=== PATIENT | male | born 1960 | race Two or more races ===

== ENCOUNTER 2020-04-30 09:21 | Outpatient (REF) | payer MEDICARE, SELFPAY | END 2020-04-30 09:22 | disposition home or self-care (01) | LOC: HO.LAB 09:21 | PROVIDERS: PCP Family Medicine; Visit Provider Internal Medicine | DX: Z20.828 Contact with and (suspected) exposure to other viral communicable diseases (principal) | CPT/HCPCS: C9803; U0003 ==

== ENCOUNTER 2020-06-29 12:49 | Outpatient (REF) | payer MEDICARE, SELFPAY | END 2020-06-29 12:50 | disposition home or self-care (01) | LOC: HO.LAB 12:49 | PROVIDERS: Visit Provider Internal Medicine | DX: Z20.822 Contact with and (suspected) exposure to COVID-19 (principal) | CPT/HCPCS: 36415; C9803; U0003; U0005 ==

== ENCOUNTER 2021-02-23 11:34 | Emergency (ER) | payer MEDICARE, SELFPAY ==
[2021-02-23 12:37] VITALS: BP 172/93; PULSE 104; RESP 18; TEMP 37; O2SAT 99; BMI 29.8
--- NOTE | 2021-02-23 13:49 | ED.BACK ---
HPI - Back Pain/Injury General Chief Complaint: Back Pain/Injury Stated Complaint: back/leg pain Time Seen by Provider: 02/23/21 13:04 Source: patient Mode of arrival: ambulatory Limitations: no limitations History of Present Illness MD elicited complaint: back pain Onset (ago): week(s) (One week worse today) Timing: constant and progressively worsening Severity: moderate Quality: sharp and aching Location: sacrum Radiation: left upper leg and left leg below the knee Exacerbating factors: movement, supine positioning, sitting upright and walking Relieving factors: other (Laying on the right side) Context: unknown Associated symptoms: denies other symptoms Work related injury: No Related Data Previous Rx's Medication Instructions Recorded acetaminophen 500 mg tablet 1,000 mg PO QID PRN #14 tab 02/23/21 (Tylenol Extra Strength) cyclobenzaprine 10 mg tablet 10 mg PO Q8H PRN #14 tab 02/23/21 ibuprofen 800 mg tablet 800 mg PO Q8H PRN #14 tab 02/23/21 lidocaine HCl 4 % topical cream 1 appl TOPICAL BID PRN #120 g 02/23/21 (Aspercreme (lidocaine HCl)) oxycodone 5 mg tablet 5 mg PO Q6H PRN #14 tab 02/23/21 prednisone 20 mg tablet 40 mg PO DAILY 5 Days #10 tab 02/23/21 Allergies Allergy/AdvReac Type Severity Reaction Status Date / Time trazodone [TRAZODONE] Allergy Unknown UNKNOWN Verified 02/23/21 12:37 Review of Systems Review of Systems: Constitutional : No trauma, No Weight loss, No Fever, No Chills, ENT/Mouth : No Hearing loss, No Ear Pain, No Nasal Congestion, No Sinus Pain, No Hoarseness, No sore throat, No Rhinorrhea, No Swallowing Difficulty Cardiovascular : No Chest Pain, No SOB Respiratory : No Cough, No Dyspnea Gastrointestinal : No Nausea, No Vomiting, No Diarrhea, No abdominal Pain, No Hematochezia, No Melena Genitourinary : No Dysuria, No Urinary Frequency, No Hematuria, No Urinary or Bowel Incontinence/retention Musculoskeletal : + Back pain, No neck pain, No joint stiffness, No joint swelling Skin : No Skin Lesions, No rash or signs of infection Neuro : No Weakness, No radiation, No Numbness, No Paresthesias, No headache, no loss of bowel or bladder incontinence, no saddle anesthesia, Focal weakness, No radiation Denies history of IV drug usage. Yes all other systems are reviewed and are negative [facility] Past Medical History Attestation statement: The following information was validated with the patient. Social History Social History Advance Directives: No Physical Exam Vital Signs: Vital Signs: Last Vital Signs Temp 98.6 F 02/23/21 12:37 Pulse 104 H 02/23/21 12:37 Resp 18 02/23/21 12:37 BP 172/93 H 02/23/21 12:37 Pulse Ox 99 02/23/21 12:37 Body Mass Index 29.8 vital signs have been reviewed as normal and appeared to be correct. Blood pressure normal. Heart rate normal. Respiration rate normal. Temperature normal. Oxygen saturation normal. Appearance: Alert. Oriented X3. No acute distress. Head: Normal external exam. Normocephalic. Atraumatic. No Thompson signs noted. No raccoon eyes noted Eyes: PERRLA. EOMI. Conjunctiva and sclera normal. Eyelids normal. ENT: EAC normal. TM's Normal. Pharynx normal. Uvula midline. Moist mucous membranes. No trismus noted. No drooling noted. No muffled voice noted. Neck: Normal inspection. Neck supple. FROM. No adenopathy. Thyroid Normal. No meningeal signs. No neck mass noted. CVS: Normal heart rate and rhythm. Heart sound normal. No murmurs noted. Pulses normal throughout. Respiratory: No respiratory distress. Painless inspiration. Breath sounds normal. No wheezes/rales/rhonchi noted. Chest nontender. No accessory muscle usage noted or decreased air movement noted. Abdomen: Soft and nontender. Bowel sounds normal in all 4 quadrants. No distention noted. No organomegaly noted. No visible injury noted. Back: No CVA tenderness. Full range of motion noted. No obvious deformities, or edema. Mild para-spinal muscular tenderness from lumbar region to coccyx. Full ROM in back and lower extremities. 5/5 strength hip extension/flexion, abduction, adduction. Mild Lumbar pain with hip flexion against resistance. Straight leg raise test negative on right; Straight leg raise test negative on left; Reflexes normal ankle and knee bilaterally; EHL motor strength normal bilaterally. No rashes/lesion/induration/fluctuance or signs infection noted. Skin: Skin warm and dry. Normal skin color. Normal skin turgor. No rashes/lesions/lacerations noted. Extremities: No lower extremity edema. Extremities exhibit normal range of motion. Extremities nontender. Neuro: Oriented X 3. No motor deficit. No sensory deficit. Reflexes normal. Patient has a normal steady gait. Course Course Course Narrative: Pt c likely muscular pain, but could be herniated disc. Neuro exam shows no deficits. Not c/w AAA/epidural abscess/dissection.No high risk Hx (Incont, fever, immunosupp, recent surgery/LP, coag, signif trauma, wt loss, puls mass, hx/o Ca, TB, or IVDU) to warrant MRI/CT today. Not c/w Pyelo/UTI/kidney stone/spinal fx. Not cauda equina syndrome. Imaging not currently indicated. DC c meds and f/u. MDM - Back Pain/Injury Medical Records Attestation: I reviewed the patient's medical records. Discharge Plan Discharge Clinical Impression: Lumbar radiculopathy Patient Disposition: Home, Self-Care Instructions: Lumbar Radiculopathy (ED), Lower Back Exercises (ED) Prescriptions: New cyclobenzaprine 10 mg tablet 10 mg PO Q8H PRN (Reason: Muscle spasm) Qty: 14 RF: 0 ibuprofen 800 mg tablet 800 mg PO Q8H PRN (Reason: pain) Qty: 14 RF: 0 prednisone 20 mg tablet 40 mg PO DAILY 5 Days Qty: 10 RF: 0 acetaminophen [Tylenol Extra Strength] 500 mg tablet 1,000 mg PO QID PRN (Reason: fever or pain) Qty: 14 RF: 0 oxycodone 5 mg tablet 5 mg PO Q6H PRN (Reason: pain) Qty: 14 RF: 0 lidocaine HCl [Aspercreme (lidocaine HCl)] 4 % cream 1 appl topical BID PRN (Reason: pain) Qty: 120 RF: 0 Referrals: Amira Garber MD [Primary Care Provider] - 2 days Stand Alone Forms: Work/School Release Print Language: Georgian
[2021-02-23] MEDS: Ibuprofen 800 MG TABLET PO (14:05)
[2021-02-23] MEDS: oxyCODONE HCl Immed Release 5 MG TABLET PO (14:05)
[2021-02-23] MEDS: predniSONE 20 MG TABLET 40 MG PO (14:05)
== END 2021-02-23 14:10 | disposition home or self-care (01) ==
PROVIDERS: Emergency Provider Emergency Medicine; PCP Family Medicine
DX: M54.16 Radiculopathy, lumbar region (principal); M54.50 Low back pain, unspecified; M79.605 Pain in left leg; M79.604 Pain in right leg; Z79.899 Other long term (current) drug therapy
CPT/HCPCS: 99283

== ENCOUNTER 2021-05-27 19:45 | Emergency (ER) | payer MEDICARE, SELFPAY ==
[2021-05-27 20:15] VITALS: BP 179/91; PULSE 91; RESP 16; TEMP 36.6; O2SAT 96
== END 2021-05-28 04:02 | disposition left against medical advice (07) ==
PROVIDERS: Emergency Provider Emergency Medicine
DX: S61.411A Laceration without foreign body of right hand, initial encounter (principal); W27.8XXA Contact with other nonpowered hand tool, initial encounter; Y93.89 Activity, other specified; Y92.9 Unspecified place or not applicable; Y99.9 Unspecified external cause status
CPT/HCPCS: 99281

== ENCOUNTER 2023-01-10 16:42 | Emergency (ER) | payer OTHER, SELFPAY ==
--- NOTE | ~2023-01-10 | XR_ITS ---
EXAMINATION: XR KNEE, LEFT CLINICAL INFORMATION: Pain. COMPARISON: None available. TECHNIQUE: Four views of the left knee. FINDINGS: Bone mineralization is normal. There is no fracture. There is a small to moderate joint effusion. Alignment is anatomic. Joint spaces are maintained. No abnormal soft tissue calcification. XR/XR knee LT 3V IMPRESSION: No acute osseous abnormality. Small to moderate joint effusion.
--- NOTE | ~2023-01-10 | US_ITS ---
EXAMINATION: US VENOUS ULTRASOUND WITH DOPPLER LOWER EXTREMITY, LEFT CLINICAL INFORMATION: Left lower extremity pain and edema. COMPARISON: None available. TECHNIQUE: Ultrasound of the deep veins is performed from the hip to the calf with compression sonography and color and pulse Doppler assessment. Spectral analysis with color-flow imaging is performed. FINDINGS: There is normal venous compression and respiratory variation and augmented flow. The visualized common femoral vein, superficial femoral vein, profunda femoral vein, popliteal vein, and the trifurcation region shows no evidence of deep venous thrombosis. Complex avascular collections seen in the popliteal fossa with heterogeneous internal debris and peripheral hyperemia measuring 3.2 x 1 x 2.3 cm and 5.9 x 1.1 x 2.5 cm. US/US venous duplex LE LT IMPRESSION: No DVT demonstrated in the left lower extremity. If the patient's symptoms persist, followup ultrasound in 5 days 7 days might be of value to exclude proximal propagation from a non-visualized calf vein. Complex avascular fluid collections in the left popliteal fossa possibly representing Santiago's cysts with superimposed infection/inflammatory changes. Correlate with physical examination. Recommend a short-term follow-up study to ensure appropriate resolution.
--- NOTE | 2023-01-10 16:54 | ED.LOWEXIN ---
HPI - Extremity Injury (Lower) General Chief Complaint: Extremity Injury, Lower Stated Complaint: L knee pain with swelling Time Seen by Provider: 01/10/23 17:16 Source: patient Mode of arrival: ambulatory Limitations: no limitations History of Present Illness HPI Narrative: 62-year-old male came in for evaluation of left knee pain started few weeks ago and progressively getting worse, pain has been constant for the last 3 days. No fever, no chills, no trauma, no recent fall, no recent travel or prolonged immobilization, no history of DVT. Related Data Previous Rx's Medication Instructions Recorded acetaminophen 500 mg tablet 1,000 mg PO QID PRN fever or pain 02/23/21 (Tylenol Extra Strength) #14 tabs cyclobenzaprine 10 mg tablet 10 mg PO Q8H PRN Muscle spasm #14 02/23/21 tabs ibuprofen 800 mg tablet 800 mg PO Q8H PRN pain #14 tabs 02/23/21 lidocaine HCl 4 % topical cream 1 appl topical BID PRN pain #120 02/23/21 (Aspercreme (lidocaine HCl)) grams oxycodone 5 mg tablet 5 mg PO Q6H PRN pain #14 tabs 02/23/21 prednisone 20 mg tablet 40 mg PO DAILY rash 5 days #10 tabs 02/23/21 ibuprofen 600 mg tablet 600 mg PO Q8H PRN pain #20 tabs 01/10/23 oxycodone 5 mg tablet 5 mg PO TID PRN pain #10 tabs 01/10/23 Allergies Allergy/AdvReac Type Severity Reaction Status Date / Time trazodone [TRAZODONE] Allergy Unknown UNKNOWN Verified 01/10/23 16:58 Review of Systems Review of Systems: All other systems are reviewed and are negative Constitutional: Reports as per HPI and Reports no additional constitutional complaints Eyes: Reports as per HPI and Reports no additional eye complaints Reports system reviewed and no additional complaints, except as documented Cardiovascular: Reports as per HPI and Reports no additional cardiovascular complaints Respiratory: Reports as per HPI and Reports no additional respiratory complaints Gastrointestinal: Reports as per HPI and Reports no additional gastrointestinal complaints Genitourinary: Reports no additional female genitourinary complaints Musculoskeletal: Reports no additional musculoskeletal complaints Skin/Breast: Reports system reviewed and no additional complaints, except as docu Psychiatric: Reports no additional psychiatric complaints Endocrine: Reports no additional endocrine complaints Hematologic/Lymphatic: Reports no additional hematologic/lymphatic complaints Allergic/Immunologic: Reports no additional allergic/immunologic complaints Reports system reviewed and no additional complaints, except as documented and Reports Abnormal speech present [facility] Social History Social History Advance Directives: No Advance Directives Information Provided: No Physical Exam Vital Signs: Vital Signs: Last Vital Signs Temp 98.9 F 01/10/23 16:56 Pulse 98 01/10/23 16:56 Resp 18 01/10/23 16:56 BP 174/95 H 01/10/23 16:56 Pulse Ox 97 01/10/23 16:56 O2 Del Method Room Air 01/10/23 16:56 BMI result Body Mass Index 30.2 Vital signs have been reviewed as appeared to be correct. Blood pressure normal. Heart rate normal. Respiration rate normal. Temperature normal. Oxygen saturation normal. Appearance: Alert. Oriented X3. No acute distress. Head: Normal external exam. Normocephalic. Atraumatic. No Thompson signs noted. No raccoon eyes noted Eyes: PERRLA. EOMI. Conjunctiva and sclera normal. Eyelids normal. ENT: TM's Normal. Pharynx normal. Uvula midline. Moist mucous membranes. No trismus noted. No drooling noted. No muffled voice noted. Neck: Normal inspection. Neck supple. FROM. No adenopathy. Thyroid Normal. No meningeal signs. No neck mass noted. CVS: Normal heart rate and rhythm. Heart sound normal. No murmurs noted. Pulses normal throughout. Respiratory: No respiratory distress. Painless inspiration. Breath sounds normal. No wheezes/rales/rhonchi noted. Chest nontender. No accessory muscle usage noted or decreased air movement noted. Abdomen: Soft and nontender. Bowel sounds normal in all 4 quadrants. No distention noted. No organomegaly noted. No visible injury noted. Back: No CVA tenderness. Full range of motion noted. Skin: Skin warm and dry. Normal skin color. Normal skin turgor. No rashes/lesions/lacerations noted. Extremities: Left knee exam: Left lower extremity is extended, slight tenderness at the popliteal fossae but no redness or hotness, no fluctuation, mild left knee effusion, slight left calcified swelling and tenderness. Intact vascularly with intact PT/DP pulse. Neuro: Oriented X 3. Cranial nerve exam: II-XII are grossly intact No motor deficit. No sensory deficit. Reflexes normal. Course Course Course Narrative: RME: 62yo M w/no sig PMHx c/o L knee pain and swelling extending down LLE x2 weeks. denies hx clots or travel. +Cigarette smoker ambulating w/limping gait XR and Venous duplex US ordered Full HPI, ROS and PE to be performed by primary ED provider. Reevaluation(s) Reevaluation #1: Left knee pain and effusion, no sign of cellulitis, ultrasound is consistent with left Santiago cyst with no DVT, x-ray is showing knee effusion, physical exam and radiographic findings suggests patient's symptoms is secondary to inflammatory arthritis. Left knee immobilization with knee immobilizer, NSAIDs, analgesia. Time: 19:27 Medications Administered Discontinued Medications Generic Name Dose Route Start Last Admin Trade Name Freq PRN Reason Stop Dose Admin Ibuprofen 800 mg 01/10/23 19:20 01/10/23 19:33 Ibuprofen 800 Mg Tablet PO 01/10/23 19:21 800 mg ONCE ONE Administration Oxycodone HCl 5 mg 01/10/23 19:20 01/10/23 19:33 Oxycodone Hcl Immed Release 5 Mg Tablet PO 01/10/23 19:21 5 mg ONCE ONE Administration Medical Decision Making Differential Diagnosis Differential Diagnoses: The differential diagnosis associated with the presentation includes (Fracture, knee dislocation, arthritis, DVT.) Admission/Observation Consideration of admission/observation: Escalation of care including admission/observation considered Independent Interpretation I performed an independent interpretation of an: Plain X-Ray (Left knee: no acute fracture or dislocation or subluxation. [id number] joint effusion.) and Ultrasound (Left lower extremity: No DVT a, Santiago cyst.) Radiology Impression Discussion of test interpretation with radiology: I have reviewed the radiologist's reading. Discharge Plan Discharge Clinical Impression: Arthralgia, Effusion of knee joint, left, Santiago's cyst of knee Patient Disposition: Home, Self-Care Instructions: Arthralgia (ED) Prescriptions: New oxycodone 5 mg tablet 5 mg PO TID PRN (Reason: pain) Qty: 10 0RF Rx Instructions: Partial Fill upon patient request. ibuprofen 600 mg tablet 600 mg PO Q8H PRN (Reason: pain) Qty: 20 0RF No Action cyclobenzaprine 10 mg tablet 10 mg PO Q8H PRN (Reason: Muscle spasm) Qty: 14 0RF ibuprofen 800 mg tablet 800 mg PO Q8H PRN (Reason: pain) Qty: 14 0RF prednisone 20 mg tablet 40 mg PO DAILY 5 Days Qty: 10 0RF acetaminophen [Tylenol Extra Strength] 500 mg tablet 1,000 mg PO QID PRN (Reason: fever or pain) Qty: 14 0RF oxycodone 5 mg tablet 5 mg PO Q6H PRN (Reason: pain) Qty: 14 0RF lidocaine HCl [Aspercreme (lidocaine HCl)] 4 % cream 1 appl topical BID PRN (Reason: pain) Qty: 120 0RF Referrals: Andrew Stock MD [Physician] -
[2023-01-10 16:56] VITALS: BP 174/95; PULSE 98; RESP 18; TEMP 37.2; O2SAT 97; BMI 30.2
[2023-01-10] MEDS: Ibuprofen 800 MG TABLET PO (19:33)
[2023-01-10] MEDS: oxyCODONE HCl Immed Release 5 MG TABLET PO (19:33)
--- NOTE | 2023-01-10 19:34 | PC.NURSE ---
pt medicated per mar for 10/10 left leg pain
[2023-01-10 20:48] VITALS: BP 198/107; PULSE 82; RESP 20; TEMP 36.3; O2SAT 97
== END 2023-01-10 21:15 | disposition home or self-care (01) ==
PROVIDERS: Emergency Provider Emergency Medicine; PCP Psychiatry & Neurology Neurology
DX: M17.12 Unilateral primary osteoarthritis, left knee (principal); M25.462 Effusion, left knee; M71.22 Synovial cyst of popliteal space [Baker], left knee; M79.662 Pain in left lower leg; F17.210 Nicotine dependence, cigarettes, uncomplicated
CPT/HCPCS: 73562; 93971; 99283; 99284